=== PATIENT | male | born 1970 | race Caucasian/White ===

== ENCOUNTER 2016-12-06 13:38 | Emergency (ER) | payer OTHER ==
[2016-12-06 13:46] VITALS: BP 126/75; PULSE 88; TEMP 98.3; BMI 27.9
--- NOTE | 2016-12-06 14:05 | PDOC ---
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 He c/o severe pain. No other injuries. It has been bleeding. Denies numbness. Tetanus is not up to date. - Physicial Exam PE: GENERAL: Awake, alert, and fully oriented. In obvious discomfort. HEAD: No signs of trauma EYES: PERRLA, EOMI, sclera anicteric, conjunctiva clear EXTREMITIES: L thumb with distal nailbed injury, partial avulsion with oozing blood from the nailbed. The proximal portion of the nailbed is in place, with a break in the nail extending into the matrix. Remainder of extremities with normal range of motion, no edema. No clubbing or cyanosis. No cords, erythema, or tenderness NEUROLOGICAL: Cranial nerves II through XII grossly intact. Normal speech, normal gait SKIN: Warm, Dry, normal turgor, no rashes or lesions noted. - Medical Decision Making Pt examined under regional anesthesia- digital block. Nail was cleaned with sterile water. Nail is completely avulsed distally, unable to repair it. The proximal part of the nail was repaired with dermabond, as the nailbed beneath was intact. Nail repaired proximally in an attempt to have future nail growth. Dressed with xeroform gauze and tubular gauze dressing. Sling placed for patient comfort, to keep the hand elevated. Counseled patient to maintain dressings twice a day. Will have to trim the nail as it grows to avoid sharp edges.
[2016-12-06] MEDS ORDERED: DIPHTH,PERTUSS(ACELL),TET 0.5 ML DISP.SYRIN IM ONE (14:29)
--- NOTE | 2016-12-06 15:16 | PDOC ---
History of Present Illness - General Chief Complaint: Laceration Stated Complaint: I CUT MY FINGER Time Seen by Provider: 12/06/16 13:39 - History of Present Illness Initial Comments: 12/06/16 15:09 46 yo M with no significant pmh who presents with left thumb injury. 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 Now complains of "thumb nail" injury. He denies bony injury or other finger involvement. He denies numbness/tingling or burning of involved digit. Finger is not actively bleeding and no denies laceration to finger. Rinsed finger off with warm water following injury and wrapped thumb up with cloth. States that last tetanus was over 10 years ago. Denies h/o DM, or immunocompromised. Past History - Past Medical History Allergies/Adverse Reactions: Allergies Allergy/AdvReac Type Severity Reaction Status Date / Time No Known Allergies Allergy Verified 12/06/16 13:39 Home Medications: Ambulatory Orders Ibuprofen [Motrin -] 600 mg PO QID PRN #10 tablet MDD 3200 12/06/16 Oxycodone HCl/Acetaminophen [Percocet 10-325 mg Tablet] 1 each PO PRN #7 tablet MDD 40-1300 12/06/16 - Psycho/Social/Smoking Cessation Hx Anxiety: No Suicidal Ideation: No Smoking History: Never smoked Hx Alcohol Use: Yes Drug/Substance Use Hx: No Substance Use Type: Alcohol Review of Systems - Review of Systems Comments:: 12/06/16 15:47 GENERAL/CONSTITUTIONAL: No fever or chills. No weakness. HEAD, EYES, EARS, NOSE AND THROAT: No change in vision. No ear pain or discharge. No sore throat.- CARDIOVASCULAR: No chest pain or shortness of breath RESPIRATORY: No cough, wheezing, or hemoptysis. GASTROINTESTINAL: No nausea, vomiting, diarrhea or constipation. GENITOURINARY: No dysuria, frequency, or change in urination. MUSCULOSKELETAL: + Left sided first digit nailbed injury. No joint or muscle swelling or pain. No neck or back pain. SKIN: No rash NEUROLOGIC: No headache, vertigo, loss of consciousness, or change in strength/ sensation. ENDOCRINE: No increased thirst. No abnormal weight change HEMATOLOGIC/LYMPHATIC: No anemia, easy bleeding, or history of blood clots. ALLERGIC/IMMUNOLOGIC: No hives or skin allergy. *Physical Exam - Vital Signs Last Vital Signs Temp Pulse Resp BP Pulse Ox 98.3 F 88 18 126/75 100 12/06/16 13:39 12/06/16 13:39 12/06/16 13:39 12/06/16 13:39 12/06/16 13:39 - Physical Exam Comments: 12/06/16 15:48 GENERAL: Awake, alert, and fully oriented, in no acute distress HEAD: No signs of trauma, normocephalic, atraumatic LUNGS: No distress, speaks full sentences, clear to auscultation bilaterally HEART: Regular rate and rhythm, normal S1 and S2, no murmurs, rubs or gallops, peripheral pulses normal and equal bilaterally. EXTREMITIES: + Nailbed avulsion and ecchymosis left sided first digit. Absent laceration. Actively bleeding. Normal inspection, Normal range of motion, no edema. No clubbing or cyanosis. NEUROLOGICAL: Cranial nerves II through XII grossly intact. Normal speech, normal gait, no focal sensorimotor deficits SKIN: Warm, Dry, normal turgor, no rashes or lesions noted Medical Decision Making - Medical Decision Making 12/06/16 15:36 46 yo M with no significant pmh who presents with left thumb injury. Pt. reports repairing an antique clock when left sided first digit was struck with metal wind up causing central piece of finger nail to avulse. + Uncal hemorrhage. absent cuticle or nail matrix involvement. No bony injury or other finger involvement. Absent evidence of neruovasuclar compromise. Absent evidence of nailbed laceration. States that last tetanus was over 10 years ago. Denies h/o DM, or immunocompromised. ED Course: left sided 1st digit digital block with 2% lidocaine x 2 Tetanus (boostrix) administered Xeroform applied and digit dressed with gauze. Pt. counseled on topical application of dressing and follow up with PCP. *DC/Admit/Observation/Transfer Diagnosis at time of Disposition: Avulsion of nail bed - Discharge Dispostion Disposition: HOME Condition at time of disposition: Stable Admit: No - Prescriptions Prescriptions: Ibuprofen [Motrin -] 600 mg PO QID PRN #10 tablet MDD 3200 PRN Reason: Pain Oxycodone HCl/Acetaminophen [Percocet 10-325 mg Tablet] 1 each PO PRN #7 tablet MDD 40-1300 - Patient Instructions Additional Instructions: Please follow up with primary care physician within the next week Print Language: GABONESE - Attestations Physician Attestion: 12/06/16 15:46 Neftali Coronel attest to the following information provided.
== END 2016-12-06 15:55 | disposition home or self-care (01) ==
LOC: FER 13:38
PROC: 3E0234Z Introduction of Serum, Toxoid and Vaccine into Muscle, Percutaneous Approach (ICD-10-PCS; principal; 2016-12-06)
DX: S61.102A Unspecified open wound of left thumb with damage to nail, initial encounter (principal); W31.89XA Contact with other specified machinery, initial encounter; Y93.89 Activity, other specified; Y92.9 Unspecified place or not applicable; Y99.0 Civilian activity done for income or pay
CPT/HCPCS: 90715; 99282-25

== ENCOUNTER 2022-04-17 13:50 | Emergency (ER) | payer OTHER ==
[2022-04-17 14:14] VITALS: BP 137/89; PULSE 66; RESP 15; TEMP 97.4; BMI 29.4
[2022-04-17] MEDS ORDERED: AMOX TR/POT CLAV 875MG/125MG TABLETS (FP) PO ONE (16:27)
[2022-04-17] MEDS ORDERED: AMOX TR/POT CLAV 875MG/125MG TABLETS (FP) ONE (16:51)
== END 2022-04-17 16:54 | disposition home or self-care (01) ==
LOC: FER 13:50
PROC: 0HQLXZZ Repair Left Lower Leg Skin, External Approach (ICD-10-PCS; principal; 2022-04-17)
DX: S81.812A Laceration without foreign body, left lower leg, initial encounter (principal); V18.0XXA Pedal cycle driver injured in noncollision transport accident in nontraffic accident, initial encounter
CPT/HCPCS: 73560-TC-LT-FY; 99283-25

== ENCOUNTER 2023-05-19 13:41 | Inpatient (IN) | payer OTHER ==
[2023-05-19 14:43] LABS: HEMATOCRIT 40.4 % (35.4-49); HEMOGLOBIN 14.3 G/dL (11.7-16.9); MCH 33.1 pg (25.7-33.7); MCHC 35.3 g/dl (32.0-35.9); MEAN CELL VOLUME 93.9 fl (80-96); MEAN PLT VOLUME 7.8 fl (7.5-11.1); PLATELET COUNT 200.7 10^3/uL (134-434); RDW 13.2 % (11.9-15.9); WHITE BLOOD COUNT 9.1 10^3/uL (4.0-10.8)
[2023-05-19 14:51] LABS: ALBUMIN 3.9 g/dl (3.4-5.0); BILIRUBIN,TOTAL 1.8 mg/dl (0.2-1); CALCIUM 8.5 mg/dl (8.5-10.1); CREATININE 0.7 mg/dl (0.6-1.3); POTASSIUM 3.3 mmol/L (3.5-5.1); TOT PROT 5.9 g/dl (6.4-8.2)
[2023-05-19 15:19] LABS: PLATELET ESTIMATE ADEQUATE; TOXIC GRANULATION 2+
[2023-05-19] MEDS ORDERED: cefTRIAXone SODIUM 1 GM VIAL ONE (16:13)
[2023-05-19] MEDS ORDERED: AZITHROMYCIN 500 MG VIAL IVPB ONE (16:13)
[2023-05-19] MEDS ORDERED: ACETAMINOPHEN INJECTION 100 ML IVPB ONE (16:39)
[2023-05-19] MEDS: AZITHROMYCIN IVPB 500 MG in DEXTROSE 5%-WATER - 250 ML IVPB ONE (16:39)
[2023-05-19] MEDS ORDERED: DEXAMETHASONE SOD PHOSPHATE 10 MG/1 ML VIAL ONE (16:40)
[2023-05-19] MEDS: ACETAMINOPHEN 1000 MG/100 ML BAG IVPB ONE (16:41)
[2023-05-19] MEDS: DEXAMETHASONE SOD PHOSPHATE 20 MG/5 ML VIAL IVPB ONE (16:42)
[2023-05-19 16:44] LABS: N-TERMINAL BNP 1517.1 pg/ml (5-125)
[2023-05-19 17:05] LABS: LACTIC ACID 3.8 mmol/L (0.4-2.0)
[2023-05-19] MEDS ORDERED: VANCOMYCIN 1,000 MG VIAL (RESTRICTED TO ID ONLY) ONE (17:39)
[2023-05-19] MEDS: SODIUM CHLORIDE 0.9% 1000 ML INFUS.BAG IV ONE (19:02)
[2023-05-19] MEDS: VANCOMYCIN 1,000 MG in DEXTROSE 5%-WATER - 250 ML IVPB ONE (19:09)
[2023-05-19] MEDS ORDERED: FUROSEMIDE 40 MG/4 ML INJECTABLE VIAL ONE (20:49)
[2023-05-19] MEDS: FUROSEMIDE 40 MG/4 ML INJECTABLE VIAL IVPUSH ONE (20:53)
[2023-05-19] MEDS: DEXTROSE 5%-LACTATED RINGERS 1,000 ML IV SCH (21:50)
[2023-05-20 00:09] VITALS: BMI 27.7
[2023-05-20] MEDS: POTASSIUM CHLORIDE ORAL LIQUID 20 MEQ/15 ML PO ONE (02:00)
[2023-05-20] MEDS: SODIUM CHLORIDE 1,000 ML IV SCH (02:27)
[2023-05-20] MEDS ORDERED: BENZOCAINE/MENTHOL (CHLORASEPTIC ) LOZENGE MM PRN (02:28)
[2023-05-20] MEDS: KCL 10 MEQ IVPB 10 MEQ/100 ML INFUS.BAG IVPB SCH (02:36)
[2023-05-20] MEDS: ACETAMINOPHEN 325 MG TABLET (FP) PO PRN (06:12)
[2023-05-20] MEDS: methylPREDNISolone NA SUCC 40 MG/1 ML VIAL IVPUSH SCH (06:13)
[2023-05-20 07:36] LABS: HEMATOCRIT 36.6 % (35.4-49); MCH 32.6 pg (25.7-33.7); MCHC 35.5 g/dl (32.0-35.9); MEAN CELL VOLUME 91.6 fl (80-96); MEAN PLT VOLUME 7.7 fl (7.5-11.1); PLATELET COUNT 253 10^3/uL (134-434); RBC 3.99 M/mm3 (4.00-5.60); RDW 12.7 % (11.9-15.9); WHITE BLOOD COUNT 14.9 K/mm3 (4.0-10.0)
[2023-05-20 07:52] LABS: POTASSIUM 3.5 mmol/L (3.5-5.1)
[2023-05-20 07:57] LABS: ALBUMIN 2.8 g/dl (3.4-5.0); CALCIUM 8.5 mg/dL (8.5-10.1); MAGNESIUM 2.1 mg/dL (1.8-2.4)
[2023-05-20 08:01] LABS: BILIRUBIN,TOTAL 0.8 mg/dL (0.2-1); CREATININE 0.8 mg/dL (0.55-1.3)
[2023-05-20 08:07] LABS: LACTIC ACID 2.3 mmol/L (0.4-2.0)
[2023-05-20 08:54] LABS: ANISOCYTOSIS 0; MACROCYTOSIS 0
[2023-05-20] MEDS: CEFTRIAXONE 1 GM in DEXTROSE 5%-WATER - 50 ML IVPB SCH (10:04)
[2023-05-20] MEDS: AZITHROMYCIN IVPB 500 MG/250 ML BAG IVPB SCH (10:06)
[2023-05-20] MEDS: ENOXAPARIN NA (PORCINE) 40 MG/0.4 ML DISP.SYRIN SQ SCH (10:07)
[2023-05-20] MEDS: ACETAMINOPHEN 1000 MG/100 ML BAG IVPB ONE (17:56)
[2023-05-20] MEDS: MELATONIN 5 MG TABLETS PO PRN (21:03)
[2023-05-20] MEDS: ACETAMINOPHEN 1000 MG/100 ML BAG IVPB PRN (21:15)
[2023-05-20] MEDS: BENZOCAINE/MENTH/CETYLPYRD CL 1 EACH LOZENGE MM PRN (21:16)
[2023-05-21 07:54] LABS: BASO % 0.1 % (0-2.0); HEMOGLOBIN 12.2 GM/dL (11.7-16.9); LYMPH % 4.9 % (8-40); MCH 32.4 pg (25.7-33.7); MEAN CELL VOLUME 92.6 fl (80-96); MEAN PLT VOLUME 7.9 fl (7.5-11.1); MONO % 4.9 % (3.8-10.2); NEUT % 90.1 % (42.8-82.8); PLATELET COUNT 284 10^3/uL (134-434); RBC 3.78 M/mm3 (4.00-5.60); RDW 12.4 % (11.9-15.9); WHITE BLOOD COUNT 18.9 K/mm3 (4.0-10.0)
[2023-05-21 08:12] LABS: POTASSIUM 3.4 mmol/L (3.5-5.1)
[2023-05-21 08:14] LABS: ALBUMIN 2.5 g/dl (3.4-5.0); BLOOD UREA NITROGEN 24.3 mg/dL (7-18); CALCIUM 8.5 mg/dL (8.5-10.1); MAGNESIUM 2.7 mg/dL (1.8-2.4)
[2023-05-21 08:17] LABS: CREATININE 0.7 mg/dL (0.55-1.3); PHOSPHOROUS 3.1 mg/dL (2.5-4.9)
[2023-05-21 08:19] LABS: BILIRUBIN,TOTAL 0.5 mg/dL (0.2-1); TOT PROT 5.7 g/dl (6.4-8.2)
[2023-05-22 08:22] LABS: HEMATOCRIT 34.6 % (35.4-49); MCH 32.2 pg (25.7-33.7); MCHC 34.8 g/dl (32.0-35.9); MEAN CELL VOLUME 92.6 fl (80-96); MEAN PLT VOLUME 7.7 fl (7.5-11.1); PLATELET COUNT 253 10^3/uL (134-434); RBC 3.74 M/mm3 (4.00-5.60); RDW 13.1 % (11.9-15.9); WHITE BLOOD COUNT 11.4 K/mm3 (4.0-10.0)
[2023-05-22 08:39] LABS: POTASSIUM 3.9 mmol/L (3.5-5.1)
[2023-05-22 08:47] LABS: CALCIUM 8.3 mg/dL (8.5-10.1)
[2023-05-22 08:48] LABS: ALBUMIN 2.5 g/dl (3.4-5.0); MAGNESIUM 2.5 mg/dL (1.8-2.4)
[2023-05-22 08:49] LABS: BLOOD UREA NITROGEN 22.1 mg/dL (7-18)
[2023-05-22 08:50] LABS: CREATININE 0.7 mg/dL (0.55-1.3)
[2023-05-22 08:51] LABS: BILIRUBIN,TOTAL 0.4 mg/dL (0.2-1)
[2023-05-22 08:52] LABS: TOT PROT 5.4 g/dl (6.4-8.2)
[2023-05-22 10:31] LABS: ANISOCYTOSIS 0; MACROCYTOSIS 0
[2023-05-22] MEDS: POLYETHYLENE GLYCOL (HEALTHYLAX) 3350 17 GM PACKET PO SCH (10:43)
[2023-05-22] MEDS ORDERED: ALBUTEROL SO4 0.083% IH SOL 2.5 MG/3 ML VIAL.NEB. NEB PRN (12:35)
[2023-05-23 08:26] LABS: HEMATOCRIT 36.1 % (35.4-49); HEMOGLOBIN 12.6 GM/dL (11.7-16.9); MCH 32.5 pg (25.7-33.7); MCHC 34.9 g/dl (32.0-35.9); MEAN CELL VOLUME 93.1 fl (80-96); MEAN PLT VOLUME 7.4 fl (7.5-11.1); PLATELET COUNT 317 10^3/uL (134-434); RBC 3.87 M/mm3 (4.00-5.60); RDW 12.6 % (11.9-15.9); WHITE BLOOD COUNT 10.6 K/mm3 (4.0-10.0)
[2023-05-23 08:35] LABS: POTASSIUM 3.9 mmol/L (3.5-5.1)
[2023-05-23 08:42] LABS: ALBUMIN 2.4 g/dl (3.4-5.0); CALCIUM 8.5 mg/dL (8.5-10.1); MAGNESIUM 2.5 mg/dL (1.8-2.4)
[2023-05-23 08:45] LABS: CREATININE 0.7 mg/dL (0.55-1.3)
[2023-05-23 08:47] LABS: BILIRUBIN,TOTAL 0.4 mg/dL (0.2-1); TOT PROT 5.6 g/dl (6.4-8.2)
[2023-05-23 09:22] LABS: ANISOCYTOSIS 0; MACROCYTOSIS 0
[2023-05-23] MEDS ORDERED: AMOX TR/POT CLAV 875MG/125MG TABLETS (FP) PO SCH ×2 (13:15→22:00)
[2023-05-23 15:37] VITALS: BP 133/79; PULSE 57; RESP 17; TEMP 98.3
== END 2023-05-23 15:41 | disposition home or self-care (01) | DRG 194 ==
LOC: FER 13:41 → J2W 23:51
PROVIDERS: ADMIT Internal Medicine; ATTEND Internal Medicine
DX: J18.9 Pneumonia, unspecified organism (principal); E87.1 Hypo-osmolality and hyponatremia; I24.89 Other forms of acute ischemic heart disease; R04.2 Hemoptysis; J04.0 Acute laryngitis; E87.6 Hypokalemia; R07.89 Other chest pain
CPT/HCPCS: 0241U-QW; 36415; 71045-TC-FY; 71250-TC; 80053; 80061; 81003; 81015; 82570; 83036; 83605; 83735; 83880; 83935; 84100; 84439; 84443; 84484; 85025; 85027; 87040; 87070; 87086; 87205; 87899; 93005; 93010; 93306-TC; 93308; 94660; 97116-GP; 97161-GP; 99291; J0131; J1250

== ENCOUNTER 2024-11-06 06:20 | Day surgery (SDC) | payer OTHER ==
[2024-11-02 10:49] VITALS: BMI 26.7
[2024-11-06] MEDS ORDERED: ONDANSETRON 4 MG/2 ML VIAL IVPUSH PRN (10:40)
[2024-11-06] MEDS ORDERED: PROPOFOL 20 ML ONE (11:20)
[2024-11-06] MEDS ORDERED: MIDAZOLAM HCL 2 MG/2 ML SINGLE DOSE VIAL ONE (11:20)
[2024-11-06] MEDS ORDERED: LIDOCAINE HCL/PF 2% SDV 5ML VIAL ONE (11:36)
[2024-11-06] MEDS ORDERED: DEXTROSE 5%-0.45% SALINE 1,000 ML IV SCH (11:45)
[2024-11-06] MEDS ORDERED: ONDANSETRON 4 MG/2 ML VIAL ONE (11:45)
[2024-11-06] MEDS ORDERED: DEXAMETHASONE SOD PHOSPHATE 4 MG/1 ML VIAL ONE (11:45)
[2024-11-06] MEDS: ACETAMINOPHEN 1000 MG/100 ML BAG IVPB ONE (12:52)
[2024-11-06] MEDS: ACETAMINOPHEN INJECTION 100 ML ONE (12:52)
[2024-11-06] MEDS: LACTATED RINGERS SOLUTION 1,000 ML IV SCH (13:17)
[2024-11-06 14:20] VITALS: TEMP 97.8
[2024-11-06 15:19] VITALS: BP 155/91; PULSE 49; RESP 18
== END 2024-11-06 15:05 | disposition home or self-care (01) ==
LOC: JASU-SURG 06:20
PROVIDERS: ATTEND Urology
PROC: 0T7D8DZ Dilation of Urethra with Intraluminal Device, Via Natural or Artificial Opening Endoscopic (ICD-10-PCS; principal; 2024-11-06 11:00)
DX: N40.1 Benign prostatic hyperplasia with lower urinary tract symptoms (principal); R35.1 Nocturia; R39.12 Poor urinary stream
CPT/HCPCS: C9740; L8699; 94760